=== PATIENT | female | born 1935 | race Caucasian/White ===

== ENCOUNTER 2018-12-22 16:25 | Inpatient (IN) ==
[2018-12-22] MEDS ORDERED: ZOFRAN IV PRN (17:21)
[2018-12-22] MEDS ORDERED: TYLENOL PO PRN (17:21)
--- NOTE | 2018-12-22 17:48 | Diag Imaging Result Doc PS360 ---
CHEST-PORTABLE - 12/22/2018 INDICATION: new admit COMPARISON: 09/20/2018 FINDINGS: The lungs are normally expanded and clear. Heart size and mediastinal contours are normal. No pneumothorax or pleural effusion. IMPRESSION: Negative exam. Electronically signed by Ahmet Mishra 12/22/2018 5:46 PM
[2018-12-22 18:04] LABS: BASO# 0.07 X1000 (0.0-0.2); BASO% 0.9 % (0.0-0.8); EOS# 0.28 X1000 (0.0-0.7); EOS% 3.8 % (0.0-10.0); HEMATOCRIT 38.1 % (37.0-47.0); HEMOGLOBIN 12.2 g/dL (12.0-16.0); LYMPH% 24.2 % (20.5-51.1); MCH 30.5 PG (27-31); MCV 95.3 FL (81-99); MONO# 0.99 X1000 (0.11-0.59); MONO% 13.3 % (1.7-9.3); MPV 10.1 FL (7.4-10.4); NEUT# 4.31 X1000 (1.4-6.5); NEUT% 57.8 % (42.2-75.2); PLT 419 X1000 (130-400); RDW 14.8 % (11.5-14.5); WBC 7.45 X1000 (4.8-10.8)
[2018-12-22 18:15] LABS: INR 2.44; PROTIME 28.2 Seconds (11.0-16.0)
[2018-12-22 18:16] LABS: PTT 47.9 Seconds (22.3-41.8)
[2018-12-22 18:20] LABS: AGAP 14; ALB/GLOB RATIO 1.1; ALBUMIN 4.1 g/dL (3.5-5.0); ALKALINE PHOSPHATASE 115 U/L (32-104); BUN 17 mg/dL (8-22); CALCIUM 9.8 mg/dL (8.8-10.2); CHLORIDE 101 mmol/L (98-107); COSMO 278; CREATININE 0.8 mg/dL (0.5-0.9); ESTIMATED GFR > 60; GLUCOSE 86 mg/dL (70-104); GOT 23 U/L (10-30); GPT 15 U/L (10-36); POTASSIUM 3.6 mmol/L (3.5-5.1); SODIUM 139 mmol/L (136-145); TCO2 24 mmol/L (25-35); TOTAL BILIRUBIN 0.33 mg/dL (0.20-1.00); TOTAL PROTEIN 7.7 g/dL (6.3-8.3)
[2018-12-22 18:42] LABS: FREE T4 1.34 ng/dL (0.93-1.70); TSH 3.46 uIUmL (0.27-4.20)
[2018-12-22] MEDS ORDERED: VITAMIN K SUBQ ONE (18:44)
[2018-12-22] MEDS ORDERED: CORDARONE PO SCH (18:45)
[2018-12-22] MEDS: MORPHINE IV PRN ×2 (19:04→22:49)
--- NOTE | 2018-12-22 19:13 | HISTORY AND PHYSICAL ---
HISTORY OF PRESENT ILLNESS: Mrs. Romero used to be a patient of Dr. Ferrari and I think she sees Dr. Graves. This is an 83-year-old whose ProTime was elevated, Coumadin level was high and she got a large hematoma on her right lateral thigh and this is drained. She has seen local physical therapist and and they have done some wraps on her legs and the drainage has gone down well, but developed some pain. She must have bumped something to get the hematoma and she developed some pain in her hip and was walking but with discomfort. She went and saw Dr. Soto and they found a fracture nondisplaced. I think, a femur neck fracture. I think it is a femoral neck fracture and so was sent here to the hospital. PAST MEDICAL HISTORY: 1. Hypertension. 2. Hypercholesterolemia. 3. Asthma. 4. Paroxysmal atrial fibrillation for which she is on Coumadin. 5. Recent hematoma. ALLERGIES: Levaquin. I should add to this that she has had Erysipelas in the past. SOCIAL HISTORY: . She is a homemaker. Denies alcohol or tobacco or illicit drugs. FAMILY HISTORY: Noncontributory. She does not report any significant history of cardiac or renal pathology and no history of coagulation disorders. PHYSICAL EXAMINATION: VITAL SIGNS: Temperature 98.6 degrees, pulse 78, respirations 16, blood pressure 170/85. O2 saturation was 82% on room air. HEENT: Pupils are equal and round. LUNGS: Clear in all lung hussein. CARDIOVASCULAR: Regular rhythm and rate without murmur or S3. ABDOMEN: Soft. SKIN: Warm and dry weight 138 pounds. Height 5 feet 7 inches. CVP is less than 6 cm. LUNGS: Are clear in all lung hussein. CARDIOVASCULAR: Regular rate without murmur or S3. ABDOMEN: Is soft. EXTREMITIES: She has some erythema in the lower right leg, but really they are symmetrical. She has good movement of her legs and she is able to bend her knees. No sign of asymmetry. Pedal pulses, popliteal, femoral pulses 2+ and symmetrical. LABORATORY DATA: White count 7450, hematocrit is 38, platelet count is 419,000. Sodium 139, potassium 3.6, chloride 101, BUN 17, creatinine 0.8, calcium 9.8, alkaline phos 115. ProTime 28, PTT is 47, INR 2.44. So, and the CT chest x-ray negative lungs are normally expanded. ASSESSMENT AND PLAN: 1. Right femoral neck fracture and nondisplaced. She has an elevated ProTime. We are going to give her 10 mg of vitamin K and we are going to give her this is Mrs. Romero. She has got an elevated ProTime. We are going to get her ready for surgery. We are going to give her 10 mg of vitamin K, and we are going to give her 2 G 2 units of fresh frozen plasma. We will check her ProTime again in the morning. 2. She has got paroxysmal atrial fibrillation. Aware. We will keep her on a monitor. Her rate appears controlled. We will get an EKG. I believe she is in sinus rhythm at this time. 3. We will watch her blood pressure got a history of hypertension. 4. History of hypercholesterolemia. Nutritional status looks good. REVIEW OF HER CURRENT MEDICATIONS: She was on alprazolam 1 mg at bedtime. I think we can continue that. Cordarone 100 mg daily. We will continue that. She takes a calcium carbonate and vitamin D3 and vitamin K1 and calcium chewable tab and I think we can continue that vitamin D3 2000 units a day, Breo Ellipta 100 to 25 inhalation 1 puff twice a day. We can continue Mucinex 600 mg daily, melatonin 3 mg at bedtime, Singulair 10 mg at bedtime, multivitamin 1 daily, potassium chloride 20 mEq daily, simvastatin 20 mg daily. Actually what we are going to give her is [place] right now, we will give her morphine and she needs some stronger obviously we will hold the Coumadin. We will check ProTime in the morning. We will check T4, TSH, B12, folate, recheck her CBC and basic metabolic profile with magnesium. We will also get an EKG tonight and I think we ought to probably repeat another EKG in the morning. She will be on a monitor. cc: MD RAGHAV Deshpande
[2018-12-22] MEDS: NORCO-7.5 PO PRN (20:46)
[2018-12-22 21:01] LABS: URINE SOURCE CLEAN CATCH
[2018-12-22] MEDS: NS 1,000 ML IV SCH (21:10)
[2018-12-22 21:19] LABS: BILIRUBIN URINE NEGATIVE (NEGATIVE); BLOOD URINE NEGATIVE (NEGATIVE); COLOR STRAW; GLUCOSE URINE NEGATIVE (NEGATIVE); KETONE URINE NEGATIVE (NEGATIVE); LEUKOCYTES URINE NEGATIVE (NEGATIVE); NITRITE URINE NEGATIVE (NEGATIVE); PROTEIN URINE NEGATIVE (NEGATIVE); SP GRAVITY URINE 1.002; TURBIDITY URINE CLEAR (CLEAR); UROBILINOGEN URINE NORMAL (NORMAL)
[2018-12-22 21:20] LABS: UR EPITHELIAL CELLS <10 /HPF (<10); URINE BACTERIA NEGATIVE /HPF; URINE RBC <10 /HPF (<10); URINE WBC <10 /HPF (<10)
[2018-12-22] MEDS: MELATONIN PO SCH (22:49)
[2018-12-22] MEDS: MUCINEX PO SCH (22:49)
[2018-12-22] MEDS: ZOCOR PO SCH (22:49)
[2018-12-22] MEDS: XANAX PO SCH (22:49)
[2018-12-22] MEDS: SINGULAIR PO SCH (22:49)
[2018-12-23] MEDS: NORCO-7.5 PO PRN (02:24)
--- NOTE | 2018-12-23 06:35 | EKG Report ---
Test Performed on : 12/22/2018 8:12:09 PM Test Reason : afib Blood Pressure : / mmHG Vent. Rate : 075 BPM Atrial Rate : 075 BPM P-R Int : 150 ms QRS Dur : 104 ms QT Int : 430 ms P-R-T Axes : 073 034 013 degrees QTc Int : 480 ms Normal sinus rhythm. Nonspecific ST abnormality Abnormal ECG When compared with ECG of 16-JUN-2018 10:10, premature atrial complexes. are no longer present Nonspecific T wave abnormality, improved in Anterolateral leads QT has lengthened Confirmed by Angelina PADRON, Jules House ([id number]) on 12/23/2018 12:00:30 PM
[2018-12-23 06:48] LABS: BASO# 0.07 X1000 (0.0-0.2); BASO% 1.4 % (0.0-0.8); EOS# 0.53 X1000 (0.0-0.7); EOS% 10.2 % (0.0-10.0); HEMATOCRIT 34.4 % (37.0-47.0); LYMPH# 1.78 X1000 (1.2-3.4); LYMPH% 34.4 % (20.5-51.1); MCH 30.9 PG (27-31); MCV 96.6 FL (81-99); MONO# 0.84 X1000 (0.11-0.59); MONO% 16.2 % (1.7-9.3); MPV 10.3 FL (7.4-10.4); NEUT# 1.96 X1000 (1.4-6.5); NEUT% 37.8 % (42.2-75.2); PLT 363 X1000 (130-400); RBC 3.56 XMIL (4.2-5.4); RDW 14.9 % (11.5-14.5); WBC 5.18 X1000 (4.8-10.8)
--- NOTE | 2018-12-23 06:59 | EKG Report ---
Test Performed on : 12/23/2018 06:50:19 AM Test Reason : fu Blood Pressure : / mmHG Vent. Rate : 071 BPM Atrial Rate : 071 BPM P-R Int : 186 ms QRS Dur : 102 ms QT Int : 426 ms P-R-T Axes : 080 075 069 degrees QTc Int : 462 ms Normal sinus rhythm. Normal ECG When compared with ECG of 22-DEC-2018 20:12, (Unconfirmed) Nonspecific T wave abnormality has replaced inverted T waves in Inferior leads Confirmed by Angelina PADRON, Jules House ([id number]) on 12/23/2018 12:00:55 PM
[2018-12-23] MEDS: MORPHINE IV PRN ×3 (07:10→13:50)
[2018-12-23 07:27] LABS: AGAP 10; ALB/GLOB RATIO 1.1; ALBUMIN 3.4 g/dL (3.5-5.0); ALKALINE PHOSPHATASE 96 U/L (32-104); BUN 13 mg/dL (8-22); CALCIUM 9.2 mg/dL (8.8-10.2); CHLORIDE 108 mmol/L (98-107); COSMO 288; CREATININE 0.8 mg/dL (0.5-0.9); ESTIMATED GFR > 60; GLUCOSE 78 mg/dL (70-104); GOT 22 U/L (10-30); GPT 16 U/L (10-36); MAGNESIUM 1.9 mg/dL (1.5-2.7); POTASSIUM 3.6 mmol/L (3.5-5.1); SODIUM 145 mmol/L (136-145); TCO2 27 mmol/L (25-35); TOTAL PROTEIN 6.4 g/dL (6.3-8.3)
[2018-12-23] MEDS: BREO ELLIPTA 100/25 MCG INH INH SCH (07:45)
[2018-12-23 07:57] LABS: INR 1.64; PROTIME 20.7 Seconds (11.0-16.0)
[2018-12-23] MEDS: NS 1,000 ML IV SCH ×3 (08:18→16:45)
--- NOTE | 2018-12-23 08:31 | ORTHOPAEDICS CONSULTATION ---
DATE: 12/23/2018 CLINICAL HISTORY: The patient is a pleasant 83-year-old female with approximately 2-week history of pain and discomfort in her right hip. She denies a recent fall. The patient did require a trip to the emergency room after bumping her hip back in October. X-rays were obtained at that time and were negative for fracture. Approximately 2 weeks ago she said she had a sudden increase in pain and discomfort and had limited mobility. She underwent x-rays per Dr. Graves which revealed a right femoral neck fracture. She presented to the emergency room. X-rays were obtained at that time and were negative for a fracture. She did sustain a large hematoma secondary to her Coumadin level being high. She underwent physical therapy with wraps for her edema. She reports approximately 2 weeks ago she had this increased pain and discomfort in her right hip and began to have more difficulty with any ambulation. She underwent x-rays per Dr. Graves yesterday which revealed a right femoral neck fracture. She was in the office and recommendation was to proceed with hospital admission for definitive management. The patient denies a recent fall or injury. HOME MEDICATIONS: Home medications are [*] 1 mg p.o. at bedtime, Cordarone 100 mg p.o. daily, calcium carbonate, vitamin D3 2000 units per day, vitamin K 1, calcium chewable tablets, Breo Ellipta inhalation 1 puff twice a day, Mucinex 600 mg p.o. q. daily, melatonin 3 mg p.o. at bedtime, Singulair 10 mg p.o. at bedtime, multivitamin daily, potassium chloride 20 mEq daily, and simvastatin 20 mg p.o. q. daily. PAST MEDICAL HISTORY: Significant for: 1. Paroxysmal atrial fibrillation on chronic Coumadin. 2. Hypertension. 3. Hypercholesteremia. 4. Asthma. 5. Pulmonary disease. PAST SURGICAL HISTORY: Appendectomy, cholecystectomy, hysterectomy, tonsillectomy, hernia repair. PHYSICAL EXAMINATION: general: The patient is awake, alert, and cooperative wit the exam. Extremities: Her bilateral left upper extremities are nontender to palpation, good range of motion, nontender with range of motion or palpation, good booking supervisor strength, and neurovascularly intact throughout. The patient's right lower extremity is held in a flexed position. She is able gently move the hip. Does have pain with movement and tenderness to palpation and tenderness to gentle internal and external rotation. Calf is soft. She is grossly neurovascularly intact distally. Her left lower extremity is nontender to palpation. Calf is soft. She is neurovascularly distally. She is nontender with range of motion of the left hip. STUDIES: X-rays reveal a right displaced femoral neck fracture. IMPRESSION: Right displaced femoral neck fracture. PLAN: At this point, recommendation to proceed with hemiarthroplasty of right hip was offered. Risks and benefits of surgery explained, including risks of anesthesia, , bleeding, infection, failure to relieve pain, postoperative stiffness, nerve injury, blood clots, and other imponderables. All questions were answered, and the patient agrees to treatment plan. Plan is to proceed with surgery once her anticoagulation is adequately reversed and she is medically cleared. cc: Bry Soto MD
[2018-12-23] MEDS ORDERED: VITAMIN K SUBQ ONE (09:01)
[2018-12-23] MEDS: BIOTIN PO SCH (09:10)
[2018-12-23] MEDS: MUCINEX PO SCH ×2 (09:11→22:43)
[2018-12-23] MEDS: CALTRATE 600 + D PO SCH (09:11)
[2018-12-23] MEDS: KLOR-CON PO SCH (09:11)
[2018-12-23] MEDS: CORDARONE PO SCH (09:11)
[2018-12-23] MEDS: VITAMIN D PO SCH (09:11)
--- NOTE | 2018-12-23 09:45 | PROGRESS NOTE ---
DATE: 12/23/2018 Ms. Romero had a pretty uneventful night. Remains afebrile. OBJECTIVE: VITAL SIGNS: Temp 98.5 degrees, pulse 80, respirations 14, blood pressure 145/85. HEENT: Pupils are equal and round. LUNGS: Clear in all lung hussein. CARDIOVASCULAR: Regular rate and rhythm without murmur or S3. ABDOMEN: Soft. SKIN: Warm and dry. Urine output 1200 mL. Her pro-time is down to 20 and we have held her Coumadin. I think I gave her 2 units of fresh frozen and vitamin K 10 mg, so it does not look like they will be able to do surgery today. We expect pro-time to be down. We will discuss with Orthopedic what their plan is. Paroxysmal atrial fibrillation. Rate is controlled. Continue to monitor. Blood pressures look good. History of hypercholesterolemia. Her EKG looks like she is in normal sinus rhythm. No suspicious ST segments. cc: Jules Alfaro MD
[2018-12-23 11:31] LABS: URINE SOURCE CATH
[2018-12-23 11:44] LABS: BILIRUBIN URINE NEGATIVE (NEGATIVE); BLOOD URINE NEGATIVE (NEGATIVE); COLOR STRAW; GLUCOSE URINE NEGATIVE (NEGATIVE); KETONE URINE NEGATIVE (NEGATIVE); LEUKOCYTES URINE NEGATIVE (NEGATIVE); NITRITE URINE NEGATIVE (NEGATIVE); PH URINE 7.5; PROTEIN URINE NEGATIVE (NEGATIVE); SP GRAVITY URINE 1.006; TURBIDITY URINE CLEAR (CLEAR); UR EPITHELIAL CELLS <10 /HPF (<10); URINE BACTERIA NEGATIVE /HPF; URINE RBC <10 /HPF (<10); URINE WBC <10 /HPF (<10); UROBILINOGEN URINE NORMAL (NORMAL)
[2018-12-23] MEDS ORDERED: NEOSPORIN G.U. IRRIGANT ONE (13:59)
[2018-12-23] MEDS ORDERED: KEFZOL 1 GM/D5W 1 GM/50 ML IVPB ONE (14:18)
[2018-12-23] MEDS ORDERED: DIPRIVAN 1% ONE (14:52)
[2018-12-23] MEDS ORDERED: FENTANYL ONE ×2 (15:07→15:09)
[2018-12-23] MEDS ORDERED: XYLOCAINE-MPF 2% ONE (15:09)
[2018-12-23] MEDS ORDERED: DECADRON ONE (15:09)
[2018-12-23] MEDS ORDERED: ZOFRAN ONE (15:09)
[2018-12-23] MEDS ORDERED: DILAUDID ONE (15:42)
[2018-12-23] MEDS ORDERED: NS 1,000 ML ONE (15:56)
[2018-12-23] MEDS: DILAUDID ONE ×3 (16:00→16:30)
[2018-12-23] MEDS ORDERED: ZOFRAN IV PRN (16:33)
--- NOTE | 2018-12-23 16:39 | Diag Imaging Result Doc PS360 ---
HIP 1 VIEW RIGHT - 12/23/2018 INDICATION: r bipolar hip arthroplasty TECHNIQUE: COMPARISON: 12/22/2018 FINDINGS: There is a right femoral head prosthesis in good position. Alignment is anatomic. No hardware fracture or loosening. IMPRESSION: No complication. Electronically signed by Ahmet Mishra 12/23/2018 4:37 PM
[2018-12-23] MEDS ORDERED: HALDOL IV PRN (16:45)
[2018-12-23] MEDS: OXY IR PO PRN ×2 (18:04→22:44)
[2018-12-23] MEDS: TYLENOL PO SCH (18:07)
--- NOTE | 2018-12-23 20:41 | OPERATIVE NOTE ---
PROCEDURE DATE: 12/22/2018 PREOPERATIVE DIAGNOSIS: Right displaced femoral neck fracture. POSTOPERATIVE DIAGNOSIS: Right displaced femoral neck fracture. PROCEDURE: Hemiarthroplasty right hip with a DePuy Actis size 5 press-fit stem, a 28 mm +5 femoral head and a 28 x 48 bipolar head. SURGEON: Bry Soto MD. MANAGEMENT TRAINEE PROGRAM STORES: STEVAN Bazzi SECOND PROJECT ENGINEERING MANAGER: Merrill Padilla RN. ANESTHESIA: General. IV FLUIDS: 800 mL lactated Ringer's. ESTIMATED BLOOD LOSS: 150 mL. COMPLICATIONS: None. INDICATIONS: The patient is an 83-year-old female with approximately a 2-week history of increased pain and discomfort of the right hip. She does not recall a recent fall. She did state she bumped her right hip and had a large hematoma back in October. X-rays at that time were negative. X-rays obtained yesterday of the hip revealed a right displaced femoral neck fracture. Recommendation for admission to hospital and proceed with a hemiarthroplasty was offered. After reversal of her anticoagulation, recommendation to proceed with surgery. Risks and benefits of surgery were explained, including the risks of anesthesia, , bleeding, infection, failure to relieve pain, postoperative stiffness, nerve injury, blood clots, and other imponderables. All questions were answered. The patient and family wish to proceed with surgery. DETAILS OF OPERATION: The patient was taken to the operating room and placed supine on the operating table. Once adequate anesthesia was obtained, she was placed in the left lateral decubitus position on a madsen bag with axillary roll. Right hip was subsequently prepped and draped in usual sterile fashion. Standard lateral incision was made with a skin knife. The gluteus terrell was incised longitudinally with surgical incision. A Charnley retractor was then placed. The piriformis tendon was then identified and a stay suture was placed. The piriformis tendon along with short external rotators was elevated. A T-shaped capsulotomy was then performed. The stay sutures were placed in each corner of the posterior capsule. After this had been performed, the fracture was identified. Approximately 1 cm proximal to the lesser trochanter, a femoral neck was resected. The humeral head was then removed with a corkscrew. After this had been performed, a box cutting guide was then packed in the intramedullary canal. This was followed by starting reamer. Sequential broaching was then performed up to a size 5. Calcar planing was performed on the neck. The trial head and neck length was performed, and a 28 + 5 femoral head with a 28 x 48 bipolar head appeared to be correct size. The trial implants were removed. The wound was copiously irrigated with antibiotic pulsatile lavage. A size 5 press-fit DePuy Actis stem was then impacted and had good purchase. A 28 + 5 femoral head with a 28 x 48 bipolar head was impacted on the stem. The hip was then reduced, carried through range of motion and had good range of motion and good stability. The wound was copiously irrigated with antibiotic pulsatile lavage. A #1 Vicryl was used to repair the posterior arthrotomy. This was followed by #1 Vicryl repair of the piriformis tendon. The wound was copiously irrigated once again. #1 Vicryl was then used to repair the gluteus terrell and fascia carlos in a running fashion. 2-0 Vicryl was then used to repair the subcutaneous tissue, followed by skin stephen. Adaptic, sterile 4 x 4's, ABD pad, and tape were applied to the right hip. Patient tolerated this well with no complications and transferred to the recovery room in stable condition. cc: Bry Soto MD
[2018-12-23] MEDS: SINGULAIR PO SCH (22:42)
[2018-12-23] MEDS: ZOCOR PO SCH (22:43)
[2018-12-23] MEDS: XANAX PO SCH (22:44)
[2018-12-23] MEDS: MELATONIN PO SCH (22:44)
[2018-12-23] MEDS: COUMADIN PO SCH (22:48)
[2018-12-23] MEDS: COLACE PO SCH (23:06)
[2018-12-23] MEDS: KEFZOL 1 GM/D5W 1 GM/50 ML IVPB IV SCH (23:06)
[2018-12-24] MEDS: TYLENOL PO SCH ×3 (01:17→16:23)
[2018-12-24] MEDS: NS 1,000 ML IV SCH ×3 (05:16→17:06)
[2018-12-24] MEDS: OXY IR PO PRN ×6 (05:17→21:15)
[2018-12-24] MEDS: KEFZOL 1 GM/D5W 1 GM/50 ML IVPB IV SCH (05:17)
[2018-12-24 06:42] LABS: HEMATOCRIT 31.5 % (37.0-47.0); HEMOGLOBIN 9.8 g/dL (12.0-16.0)
[2018-12-24 07:28] LABS: AGAP 11; BUN 12 mg/dL (8-22); CALCIUM 8.8 mg/dL (8.8-10.2); CHLORIDE 102 mmol/L (98-107); COSMO 277; CREATININE 0.8 mg/dL (0.5-0.9); ESTIMATED GFR > 60; GLUCOSE 158 mg/dL (70-104); POTASSIUM 3.9 mmol/L (3.5-5.1); SODIUM 137 mmol/L (136-145); TCO2 24 mmol/L (25-35)
--- NOTE | 2018-12-24 07:58 | PROGRESS NOTE ---
DATE: 12/24/2018 Ms. Romero is uncomfortable, but she had a pretty good night. OBJECTIVE: Vital Signs: Temp 98.7 degrees, pulse 72, respirations 18, blood pressure 104/48. HEENT: Pupils are equal and round. Lungs: Are clear in all lung hussein. Cardiovascular: Regular rhythm and rate without murmur or S3. Abdomen: Soft. Skin: Warm and dry. Urine output was a little over 2000 mL. Hip x-ray from yesterday, right femoral head prosthesis in good position and alignment is anatomical. She had a bipolar hip arthroplasty. ASSESSMENT AND PLAN: 1. Status post bipolar hip arthroplasty. Continue physical therapy. Seems to be doing well. 2. History of paroxysmal atrial fib. Her rate appears well controlled. 3. Blood pressure looks good. 4. Hypercholesterolemia. Aware. REVIEW OF ORDERS: She is on Colace 200 mg at bedtime, melatonin 3 mg at bedtime, Singulair 10 mg a day, Coumadin 2 mg p.o. at bedtime, OxyContin IR 5 mg q.3 hours p.r.n., normal saline is at 83 mL an hour, Xanax 1 mg at bedtime, amiodarone 100 mg, I think she takes that Wednesday, Wednesday, Wednesday, , and Fridays, biotin 5000 mcg daily, calcium carbonate 1 a day, vitamin D3 2000 units a day, ferrous sulfate 325 mg a day, fluticasone 1 puff daily, guaifenesin ER 600 mg b.i.d., Zocor 20 mg at bedtime. We need to follow her pro-time. Yesterday was 20.7, INR 1.6. She is back on the Coumadin. Her postop hematocrit was 31, hemoglobin 9.8 so, just a very mild acute blood loss anemia. cc: Jules Alfaro MD
[2018-12-24] MEDS: MORPHINE IV PRN ×5 (09:26→18:14)
[2018-12-24] MEDS: VITAMIN D PO SCH (09:27)
[2018-12-24] MEDS: FERROUS SULFATE PO SCH (09:28)
[2018-12-24] MEDS: KLOR-CON PO SCH (09:28)
[2018-12-24] MEDS: MUCINEX PO SCH ×2 (09:28→21:15)
[2018-12-24] MEDS: CALTRATE 600 + D PO SCH (09:28)
[2018-12-24] MEDS: BIOTIN PO SCH (09:29)
--- NOTE | 2018-12-24 09:39 | ORTHOPAEDICS PROGRESS NOTE ---
DATE: 12/24/2018 SUBJECTIVE: The patient is a pleasant 83-year-old female who is 1 day status post hemiarthroplasty of the right hip. She is currently resting comfortably. PHYSICAL EXAMINATION: Right lower extremity: Her dressing is intact. Calf is soft. She has active dorsiflexion and plantar flexion. Her hemoglobin is 9.8. Hematocrit is 31.5. IMPRESSION: Postoperative day number 1, status post hemiarthroplasty of right hip. PLAN: At this point, we will begin mobilization with physical therapy, weightbearing as tolerated, right lower extremity. We will consult Novelty Worker for discharge planning for inpatient rehabilitation. cc: Bry Soto MD
--- NOTE | 2018-12-24 09:41 | ORTHOPAEDICS PROGRESS NOTE ---
DATE: 12/24/2018 SUBJECTIVE: Ms. Romero is lying in bed this morning, overall feeling a little better. OBJECTIVE: Right lower extremity exam, dressing is clean, dry, and intact. She is able to dorsiflex and plantarflex the toes well. She has good sensation to light touch to the toes and 2+ DP pulse. ASSESSMENT: Status post right hip hemiarthroplasty. PLAN: Ms. Romero is doing well. She can get up and mobilize. She can weight bear as tolerated. Physical Therapy to begin working with her for mobilization, and we will continue to follow. cc: Hernandez Ceballos MD
[2018-12-24] MEDS: BREO ELLIPTA 100/25 MCG INH INH SCH (16:19)
[2018-12-24] MEDS: SINGULAIR PO SCH (21:15)
[2018-12-24] MEDS: COLACE PO SCH (21:15)
[2018-12-24] MEDS: ZOCOR PO SCH (21:15)
[2018-12-24] MEDS: MELATONIN PO SCH (21:15)
[2018-12-24] MEDS: COUMADIN PO SCH (21:15)
[2018-12-24] MEDS: XANAX PO SCH (21:16)
[2018-12-25] MEDS: NS 1,000 ML IV SCH ×3 (02:29→18:01)
[2018-12-25] MEDS: TYLENOL PO SCH ×3 (02:29→18:07)
[2018-12-25 06:42] LABS: HEMATOCRIT 29.1 % (37.0-47.0)
[2018-12-25 06:51] LABS: INR 1.11; PROTIME 15.2 Seconds (11.0-16.0)
[2018-12-25] MEDS: MORPHINE IV PRN (06:57)
[2018-12-25] MEDS: BREO ELLIPTA 100/25 MCG INH INH SCH (08:02)
[2018-12-25] MEDS: OXY IR PO PRN ×5 (08:32→21:41)
[2018-12-25] MEDS: BIOTIN PO SCH (08:32)
[2018-12-25] MEDS: FERROUS SULFATE PO SCH (08:32)
[2018-12-25] MEDS: KLOR-CON PO SCH (08:33)
[2018-12-25] MEDS: VITAMIN D PO SCH (08:33)
[2018-12-25] MEDS: CALTRATE 600 + D PO SCH (08:33)
[2018-12-25] MEDS: MUCINEX PO SCH ×2 (08:34→21:42)
--- NOTE | 2018-12-25 08:36 | PROGRESS NOTE ---
DATE: 12/25/2018 SUBJECTIVE: Ms. Romero is doing well. She is uncomfortable laying in the bed but feels a little better than yesterday. OBJECTIVE: Vital Signs: Temperature 97.7 degrees, pulse 77, respirations 16, blood pressure 145/71. HEENT: Pupils are equal and round. Lungs: Clear in all lung hussein. Cardiovascular: Regular rhythm and rate without murmur or S3. Abdomen: Soft. Skin: Warm and dry. Urine output is 3600 mL. ASSESSMENT AND PLAN: 1. Status post bipolar hip arthroplasty, doing well. Continue physical therapy. Hope to get her to rehab tomorrow. 2. Paroxysmal atrial fibrillation, rate controlled. 3. Blood pressure is doing well. 4. Hypercholesterolemia, well controlled. LABORATORY DATA: Hematocrit 29, hemoglobin 9, so she has a mild blood loss anemia from surgery. Kidney function is doing well. I do not see any change in orders. cc: Jules Alfaro MD
--- NOTE | 2018-12-25 08:57 | ORTHOPAEDICS PROGRESS NOTE ---
DATE: 12/25/2018 SUBJECTIVE: Ms. Romero lying in bed this morning. Pain seems fairly well controlled. She is still getting some pain in the hip. OBJECTIVE: On right lower extremity exam, dressing is clean, dry, and intact. She remains neurovascularly intact to the right lower extremity. Good dorsiflexion and plantar flexion of the foot. 2+ DP pulse. Good sensation to light touch to the toes. ASSESSMENT: Status post right hip hemiarthroplasty. PLAN: Ms. Romero is going to start getting up more. She did not get up much yesterday other than to stand at bedside. I want her up to the bedside chair for all meals. Then pediatric social worker team will really start looking at discharge planning tomorrow. cc: Hernandez Ceballos MD
[2018-12-25] MEDS: COLACE PO SCH (21:40)
[2018-12-25] MEDS: ZOCOR PO SCH (21:41)
[2018-12-25] MEDS: XANAX PO SCH (21:41)
[2018-12-25] MEDS: MELATONIN PO SCH (21:41)
[2018-12-25] MEDS: COUMADIN PO SCH (21:41)
[2018-12-25] MEDS: PERIDEX MT SCH (21:42)
[2018-12-25] MEDS: SINGULAIR PO SCH (21:42)
[2018-12-25] MEDS: MILK OF MAGNESIA PO PRN (21:46)
[2018-12-26] MEDS: TYLENOL PO SCH ×4 (00:43→23:55)
[2018-12-26] MEDS: OXY IR PO PRN ×5 (05:59→23:55)
[2018-12-26] MEDS: NS 1,000 ML IV SCH ×3 (06:18→17:43)
[2018-12-26 06:22] LABS: INR 1.02; PROTIME 14.3 Seconds (11.0-16.0)
[2018-12-26 06:30] LABS: HEMATOCRIT 29.4 % (37.0-47.0); HEMOGLOBIN 9.1 g/dL (12.0-16.0)
--- NOTE | 2018-12-26 07:18 | ORTHOPAEDICS PROGRESS NOTE ---
DATE: 12/26/2018 SUBJECTIVE: The patient is a pleasant, 83-year-old female who is 3 days status post hemiarthroplasty of the right hip. Patient still continues with some expected discomfort. She is slow to mobilize with physical therapy. PHYSICAL EXAMINATION: On physical examination of the patient's right lower extremity, her dressing is intact. Calf is soft. She has active dorsiflexion and plantar flexion. Her hemoglobin is 9.0, hematocrit is 29.1. IMPRESSION: Postoperative day #3 status post hemiarthroplasty of the right hip. PLAN: At this point, we will continue mobilization with physical therapy with weightbearing as tolerated to the right lower extremity. She is stable from an orthopedic standpoint. cc: Bry Soto MD
[2018-12-26] MEDS: BREO ELLIPTA 100/25 MCG INH INH SCH (07:32)
[2018-12-26] MEDS: MUCINEX PO SCH ×2 (08:12→21:44)
[2018-12-26] MEDS: FERROUS SULFATE PO SCH (08:12)
[2018-12-26] MEDS: CALTRATE 600 + D PO SCH (08:12)
[2018-12-26] MEDS: VITAMIN D PO SCH (08:12)
[2018-12-26] MEDS: PERIDEX MT SCH ×2 (08:12→21:43)
[2018-12-26] MEDS: CORDARONE PO SCH (08:13)
[2018-12-26] MEDS: KLOR-CON PO SCH (08:13)
[2018-12-26] MEDS: BIOTIN PO SCH (08:13)
[2018-12-26] MEDS: MILK OF MAGNESIA PO PRN (14:58)
--- NOTE | 2018-12-26 16:25 | PROGRESS NOTE ---
DATE: 12/26/2018 SUBJECTIVE: Ms. Romero is doing well and tolerating physical therapy, eating. Her bowels have not moved yet but she is not uncomfortable. OBJECTIVE: Vital Signs: Temperature 98.7 degrees, pulse 94, respirations 19, blood pressure 129/72. HEENT: Pupils are equal and round. Lungs: Clear in all lung hussein. Cardiovascular: Regular rhythm and rate without murmur or S3. Pedal pulses 2+ and symmetrical. ASSESSMENT AND PLAN: 1. Postoperative day 3, status post hemiarthroplasty of the right hip, doing well. Continue physical therapy. 2. History of paroxysmal atrial fibrillation. Rate is controlled. 3. Blood pressure doing well. 4. Hypercholesterolemia doing well. REVIEW OF ORDERS: I do not see any change. Colace 200 mg at bedtime, melatonin 3 mg at bedtime, Singulair 10 mg at bedtime, Coumadin 2 mg at bedtime, oxycodone IR 5 mg q.3 h. p.r.n., normal saline at 83 mL an hour, Xanax 1 mg at bedtime Cordarone she gets Wednesday, Wednesday, Wednesday, , and Fridays and holds it during the weekend, biotin 5 mg a day, calcium carbonate vitamin 1 a day, ferrous sulfate 325 mg with breakfast, vitamin D3 2000 units daily, guaifenesin ER 600 mg b.i.d., potassium chloride 20 mEq daily, and Zocor 20 mg daily. Labs look good. She does have a mild blood loss anemia from surgery. She has hematocrit 29, hemoglobin 9.1, and stable. cc: Jules Alfaro MD
[2018-12-26] MEDS ORDERED: DULCOLAX PR PRN (19:39)
[2018-12-26] MEDS ORDERED: LACTULOSE PO PRN (19:39)
[2018-12-26] MEDS: SINGULAIR PO SCH (21:44)
[2018-12-26] MEDS: COUMADIN PO SCH (21:44)
[2018-12-26] MEDS: COLACE PO SCH (21:44)
[2018-12-26] MEDS: MELATONIN PO SCH (21:44)
[2018-12-26] MEDS: ZOCOR PO SCH (21:44)
[2018-12-26] MEDS: XANAX PO SCH (21:44)
[2018-12-27] MEDS: OXY IR PO PRN ×3 (03:46→12:23)
[2018-12-27 06:15] LABS: HEMATOCRIT 28.8 % (37.0-47.0); HEMOGLOBIN 8.9 g/dL (12.0-16.0); INR 1.03; MCH 30.8 PG (27-31); MCHC 30.9 g/dL (33-37); MCV 99.7 FL (81-99); MPV 10.1 FL (7.4-10.4); PROTIME 14.3 Seconds (11.0-16.0); RBC 2.89 XMIL (4.2-5.4); RDW 15.2 % (11.5-14.5); WBC 7.74 X1000 (4.8-10.8)
[2018-12-27 06:18] LABS: AGAP 9; BUN 14 mg/dL (8-22); CALCIUM 8.8 mg/dL (8.8-10.2); CHLORIDE 103 mmol/L (98-107); COSMO 278; CREATININE 0.8 mg/dL (0.5-0.9); ESTIMATED GFR > 60; GLUCOSE 96 mg/dL (70-104); POTASSIUM 3.8 mmol/L (3.5-5.1); SODIUM 139 mmol/L (136-145); TCO2 27 mmol/L (25-35)
[2018-12-27] MEDS: NS 1,000 ML IV SCH (07:17)
[2018-12-27] MEDS: BREO ELLIPTA 100/25 MCG INH INH SCH (08:07)
[2018-12-27] MEDS: PERIDEX MT SCH (08:18)
[2018-12-27] MEDS: MILK OF MAGNESIA PO PRN (08:18)
[2018-12-27] MEDS: BIOTIN PO SCH (08:18)
[2018-12-27] MEDS: CALTRATE 600 + D PO SCH (08:20)
[2018-12-27] MEDS: VITAMIN D PO SCH (08:20)
[2018-12-27] MEDS: TYLENOL PO SCH (08:20)
[2018-12-27] MEDS: FERROUS SULFATE PO SCH (08:20)
[2018-12-27] MEDS: MUCINEX PO SCH (08:21)
[2018-12-27] MEDS: KLOR-CON PO SCH (08:21)
[2018-12-27] MEDS: CORDARONE PO SCH (08:21)
[2018-12-27] MEDS ORDERED: FLEET MINERAL OIL ENEMA PR ONE (08:54)
[2018-12-27] MEDS ORDERED: MIRALAX PO SCH (09:00)
--- NOTE | 2018-12-27 10:53 | DISCHARGE SUMMARY ---
ADMISSION DATE: 12/22/2018 DISCHARGE DATE: FINAL DISCHARGE DIAGNOSES: 1. Status post right hip hemiarthroplasty. 2. Paroxysmal atrial fibrillation. 3. Situational anxiety disorder. 4. Constipation. 5. COPD CONSULTATIONS: Orthopedic consultation with Dr. Soto. PROCEDURES: Right hip hemiarthroplasty performed on 12/22/2018. HOSPITAL COURSE: Ms. Romero is an 83-year-old female with a history of paroxysmal atrial fibrillation, anxiety disorder, and chronic constipation who presented to the ER after she bumped her hip and developed a large hematoma back in October. In the ER, a hip x-ray was done that revealed a right displaced femoral neck fracture. The patient was admitted to the hospitalist service and orthopedic surgery was consulted. The patient was taken to the OR on 12/22/2018 at which time a right hip hemiarthroplasty was performed. The patient improved slowly over the course of the hospitalization. Physical therapy was consulted and worked with the patient. After discussion with the patient, she elected to go for inpatient rehabilitation. The patient continued to improve clinically and was ultimately cleared for discharge to inpatient rehab on 12/27/2018. DISCHARGE MEDICATIONS: 1. Warfarin 2 mg oral at bedtime. 2. MiraLAX 17 g oral daily. 3. [place] 5/325 one tablet oral every 6 hours p.r.n. for pain. 4. Klor-Con 20 mEq oral daily. 5. Singulair 10 mg oral at bedtime. 6. Ellipta 1 puff inhaled daily. 7. Amiodarone 100 mg Wednesday through Wednesday. 8. Calcium plus vitamin D 1 tablet oral daily. 9. Vitamin D3 2000 units oral daily. 10. Melatonin 3 mg oral at bedtime. 11. Simvastatin 20 mg oral at bedtime. 12. Mucinex 600 mg oral twice a day. 13. Xanax 1 mg oral at bedtime. 14. Biotin 5000 mcg oral daily. DISCHARGE DIET: Heart healthy diet. ACTIVITY: As tolerated. FOLLOWUP INSTRUCTIONS: The patient will need to follow up in [address] Soto. cc: Cher Moses MD MTDRashi
[2018-12-27 12:13] VITALS: BP 126/78
== END 2018-12-27 12:58 | DRG 470 ==
LOC: DIRADM 16:25 → SUATTDRO 16:25 → 4N 16:51
PROVIDERS: ATTEND Internal Medicine
CPT/HCPCS: 36430; 71010; 71045; 72100; 73500; 73501; 73502; 80048; 80053; 81001; 82607; 82728; 82746; 83540; 83550; 83735; 84439; 84443; 85014; 85018; 85025; 85027; 85610; 85730; 86850; 86900; 86901; 88305; 88311; 93005; 93010; 94640; 94761; 97110; 97162; 97530; A9270; J0690; J1100; J1170; J2270; J2405; J3010; J3430; J7030; P9017